=== PATIENT | male | born 1985 | race Caucasian/White ===

== ENCOUNTER 2021-03-28 18:30 | Emergency (ER) | payer OTHER ==
[2021-03-28] MEDS ORDERED: NS 1,000 ML IV ONE ×2 (19:55→21:10)
[2021-03-28 20:23] LABS: BASO % 0.2 % (0.0-1.0); HEMATOCRIT 45.9 % (42.0-52.0); HEMOGLOBIN 15.8 g/dl (13.5-17.5); LYMPH # 2.7 10^3/uL (1.5-5.0); LYMPH % 22.9 % (24.0-44.0); MEAN CORPUSCULAR HEMOGLOBIN 29.4 pg (27.0-33.0); MEAN CORPUSCULAR HGB CONC 34.4 g/dl (32.0-36.5); MEAN CORPUSCULAR VOLUME 85.5 fl (80.0-96.0); MONO # 1.2 10^3/uL (0.0-0.8); MONO % 9.8 % (2.0-8.0); NEUTROPHILS # 7.9 10^3/uL (1.5-8.5); NEUTROPHILS % 66.8 % (36.0-66.0); PLATELET COUNT, AUTOMATED 228 10^3/uL (150-450); RED BLOOD COUNT 5.37 10^6/uL (4.30-6.10); WHITE BLOOD COUNT 11.8 10^3/uL (4.0-10.0)
[2021-03-28 21:07] LABS: BLOOD UREA NITROGEN 24 MG/DL (7-18); CALCIUM LEVEL 9.8 MG/DL (8.5-10.1); CARBON DIOXIDE LEVEL 28 MEQ/L (21-32); CHLORIDE LEVEL 101 MEQ/L (98-107); CPK CREATINE PHOSPHOKINASE 2033 U/L (39-308); CREATININE FOR GFR 1.42 MG/DL (0.70-1.30); GLOMERULAR FILTRATION RATE > 60.0 (>60); GLUCOSE, FASTING 82 MG/DL (70-100); MAGNESIUM LEVEL 2.1 MG/DL (1.8-2.4); POTASSIUM SERUM 4.1 MEQ/L (3.5-5.1); SODIUM LEVEL 138 MEQ/L (136-145)
[2021-03-28 22:35] VITALS: BP 154/78
--- NOTE | 2021-03-30 00:06 | ECGEPIP ---
[facility] - ED Test Date: 2021-03-28 Pat Name: WESLEY HUI Department: Room: - Gender: Male Activities Assistant: [facility] : 1985 Requested By: YONAS ESCALANTE PA-C. Order Number: [id number] Reading MD: Jnesen Muir Measurements Intervals [place] Rate: 91 P: 61 NH: 156 QRS: 66 QRSD: 80 T: 50 QT: 354 QTc: 435 Interpretive Statements Normal sinus rhythm INCOMPLETE RIGHT BUNDLE BRANCH BLOCK NONSPECIFIC T WAVE ABNORMALITY(S) NO PRIORS FOR COMPARISON Electronically Signed on 03-30-2021 0:05:30 EDT by Jensen Muir
== END 2021-03-28 22:36 | disposition home or self-care (01) ==
LOC: M ED 18:30 → EDBD 18:30 → M ED 22:36
DX: R55 Syncope and collapse (principal); E86.0 Dehydration; Z91.013 Allergy to seafood